=== PATIENT | male | born 1965 | race Two or more races ===

== ENCOUNTER 2023-02-04 23:42 | Emergency (ER) | payer OTHER ==
[~2023-02-04] VITALS: Ht 172.7 cm; Wt 79.4 kg
[2023-02-04] MEDS ORDERED: FLUOXETINE HCL20 MG PO (23:56)
[2023-02-04] MEDS ORDERED: AMLODIPINE BESYL5 MG PO (23:56)
[2023-02-04] MEDS ORDERED: SIMVASTATIN20 MG PO (23:56)
[2023-02-04] MEDS ORDERED: LISINOPRIL20 MG PO (23:56)
[2023-02-04] MEDS ORDERED: FLUOXETINE HCL40 MG PO (23:57)
[2023-02-05] MEDS ORDERED: CIPRO500 MG PO (02:53)
== END 2023-02-05 02:57 | disposition home or self-care (01) ==
LOC: ER 23:42
DX: S51.011A Laceration without foreign body of right elbow, initial encounter (principal); W25.XXXA Contact with sharp glass, initial encounter; Y93.89 Activity, other specified; Y92.69 Other specified industrial and construction area as the place of occurrence of the external cause; Y99.8 Other external cause status; I10 Essential (primary) hypertension; Z88.0 Allergy status to penicillin